=== PATIENT | male | born 2000 | race Caucasian/White ===

== ENCOUNTER 2024-02-12 11:16 | Emergency (ER) | payer SELFPAY ==
[2024-02-12] MEDS ORDERED: LIDOCAINE 2% INJ, 20 mL 20 ML ONE (11:38)
[2024-02-12 13:09] VITALS: BP 139/87; TEMP 98.6; O2SAT 100
--- NOTE | 2024-02-12 15:07 | EDPHYS ---
Physician Documentation [facility] Name: Yusfu Agarwal Age: 23 yrs Sex: Male : 2000 Arrival Date: 02/12/2024 Time: 11:16 Bed 10 Private MD: ED Physician Tatyana Altman HPI: 02/11 12:04 This 23 yrs old Male presents to ER via Ambulatory with complaints of Finger laceration.sp3 12:04 23-year-old male with no past medical history presents with right index finger proximal sp3 segment laceration that occurred approximately 18 hours ago. Patient states that he "try to put some Steri-Strips on it" but finally came in today after he cannot sources on suture material. He denies any ongoing bleeding, distal numbness or tingling, loss of motor function, secondary injury, or any other signs or symptoms on ROS at this time.. Historical: - Allergies: 11:33 Augmentin; ss - Home Meds: 11:33 None [Active]; ss - PMHx: 11:33 None; ss - PSHx: 11:33 None; ss - Immunization history:: Client reports receiving the 2nd dose of the Covid vaccine, Last tetanus immunization: Pt states, 5-7 years ago, more than likely 5 years ago. - Infectious Disease History:: Denies. - Social history:: Smoking status: Patient denies any tobacco usage or history of. ROS: 12:04 Constitutional: Negative for fever, chills, and weight loss, Eyes: Negative for injury, sp3 pain, redness, and discharge, Cardiovascular: Negative for chest pain, palpitations, and edema, Respiratory: Negative for shortness of breath, cough, wheezing, and pleuritic chest pain, Abdomen/GI: Negative for abdominal pain, nausea, vomiting, diarrhea, and constipation, Neuro: Negative for headache, weakness, numbness, tingling, and seizure, 12:04 All other systems are negative, Exam: 12:05 Constitutional: This is a well developed, well nourished patient who is awake, alert, sp3 and in no acute distress. 12:05 Musculoskeletal/extremity: Right index finger proximal segment dorsal laceration approximately 2.5 cm and a short segment and long segment the pattern. Bleeding is stopped and wound is clearly 18 hours or greater in duration since incident. Distal motor function and capillary refill are normal.. Vital Signs: 11:32 BP 139 / 87; Pulse 79; Resp 16; Temp 98.6(O); Pulse Ox 100% on R/A; Weight 83.91 kg; ss Height 6 ft. 2 in. ; Pain 3/10; 11:32 Body Mass Index 23.75 (83.91 kg, 187.96 cm) 11:32 Pain Scale: Adult ss MDM: 11:38 Patient medically screened. sp3 12:06 Data reviewed: vital signs, nurses notes. ED course: The nature hours old eligible for sp3 suture repair. Borders are mostly approximated. We will place in aluminum splint, clean wound and place topical bacitracin and send patient home on p.o. Bactrim given his Augmentin allergy. Wound will close with secondary intention I have educated patient on proper wound care and signs to come into the ED for any future potential injuries. Tetanus is up-to-date.. 02/11 12:03 Order name: Wound Care; Complete Time: 13:54 sp3 02/11 12:03 Order name: Splint - Finger; Complete Time: 13:54 sp3 Administered Medications: 12:45 Drug: Bacitracin Topical Ointment (500 unit/g) 1 application Topical once Route: Topical; Site: wound; Disposition Summary: 02/12/24 12:07 Discharge Ordered Notes: Location: Home sp3 Condition: Stable sp3 Diagnosis - Finger laceration to be closed via secondary intention sp3 Followup: sp3 - With: Private Physician - When: Upon discharge from the Emergency Department - Reason: Continuance of care Discharge Instructions: - Discharge Summary Sheet sp3 - Nonsutured Laceration Care sp3 Forms: - Medication Reconciliation Form sp3 - Antibiotic Education sp3 - Prescription Opioid Use sp3 - Patient Portal Instructions sp3 - Leadership Thank You Letter sp3 Signatures: Krys Murray RN RN Tatyana Altman MD MD sp3
--- NOTE | 2024-02-12 15:07 | ER ---
Nurse's Notes [facility] Name: Yusuf Agarwal Age: 23 yrs Sex: Male : 2000 Arrival Date: 02/12/2024 Time: 11:16 Bed 10 Private MD: Diagnosis: Finger laceration to be closed via secondary intention Presentation: 02/11 11:32 Chief complaint: Patient states: laceration to R index finger that occurred yesterday ss evening with a sledgehammer. Pt states, "nothing is broke or anything like that.". Coronavirus screen: Client denies travel out of the [place] in the last 14 days. Ebola Screen: Patient denies exposure to infectious person. Patient denies travel to an Ebola-affected area in the 21 days before illness onset. Initial Sepsis Screen: Does the patient meet any 2 criteria? No. Patient's initial sepsis screen is negative. Does the patient have a suspected source of infection? No. Patient's initial sepsis screen is negative. Risk Assessment: Do you want to hurt yourself or someone else? Patient reports no desire to harm self or others. Onset of symptoms was February 11, 2024. 11:32 Method Of Arrival: Ambulatory ss 11:32 Acuity: JEROD 4 ss Triage Assessment: 11:33 General: Appears comfortable, Behavior is calm, cooperative. Neuro: Level of ss Consciousness is awake, alert, obeys commands. Derm: Skin is pink, warm \\T\\ dry. black. Injury Description: Laceration sustained to R index finger is 0.5 to 2.5 cm long, was sustained 12-24 hours ago. no active bleeding noted at this time. Historical: - Allergies: 11:33 Augmentin; ss - Home Meds: 11:33 None [Active]; ss - PMHx: 11:33 None; ss - PSHx: 11:33 None; ss - Immunization history:: Client reports receiving the 2nd dose of the Covid vaccine, Last tetanus immunization: Pt states, 5-7 years ago, more than likely 5 years ago. - Infectious Disease History:: Denies. - Social history:: Smoking status: Patient denies any tobacco usage or history of. Screenin:40 [facility] ED Fall Risk Assessment (Adult) History of falling in the last 3 months, ss including since admission No falls in past 3 months (0 pts) Confusion or Disorientation No (0 pts) Intoxicated or Sedated No (0 pts) Impaired Gait No (0 pts) Mobility Assist Device Used No (0 pt) Altered Elimination No (0 pt) Score/Fall Risk Level 0 - 2 = Low Risk Oriented to surroundings, Maintained a safe environment. Abuse screen: Denies threats or abuse. Denies injuries from another. Nutritional screening: No deficits noted. Tuberculosis screening: No symptoms or risk factors identified. Never had TB. Assessment: 11:40 General: Appears in no apparent distress. comfortable, Behavior is calm, cooperative. ss Pain: Complains of pain in R index finger Pain currently is 3 out of 10 on a pain scale. Neuro: Level of Consciousness is awake, alert, obeys commands, Oriented to person, place, time, situation. Respiratory: Airway is patent Respiratory effort is even, unlabored, Respiratory pattern is regular, symmetrical. Derm: Skin is pink, warm \\T\\ dry. normal. Injury Description: Laceration sustained to dorsal aspect of middle phalanx of right index finger is jagged, 0.5 to 2.5 cm long, was sustained 12-24 hours ago. no active bleeding noted at this time. Vital Signs: 11:32 BP 139 / 87; Pulse 79; Resp 16; Temp 98.6(O); Pulse Ox 100% on R/A; Weight 83.91 kg; ss Height 6 ft. 2 in. ; Pain 3/10; 11:32 Body Mass Index 23.75 (83.91 kg, 187.96 cm) ss 11:32 Pain Scale: Adult ss ED Course: 11:19 Patient arrived in ED. mr 11:19 Tatyana Altman MD is Attending Physician. sp3 11:32 Krys Murray, RACHELLE is Primary Nurse. ss 11:33 Triage completed. ss 11:33 Arm band placed on right wrist. ss 11:40 Patient has correct armband on for positive identification. Bed in low position. ss 11:40 No provider procedures requiring assistance completed. Patient did not have IV access ss during this emergency room visit. Wound care: to laceration located on dorsal aspect of middle phalanx of right index finger was cleaned with soap and water, Patient tolerated well. Administered Medications: 12:45 Drug: Bacitracin Topical Ointment (500 unit/g) 1 application Topical once Route: ss Topical; Site: wound; Medication: 11:40 VIS not applicable for this client. Outcome: 12:07 Discharge ordered by . sp3 12:45 Discharged to home ambulatory, with family, ss 12:45 Condition: good 12:45 Discharge instructions given to patient, family, Instructed on discharge instructions, follow up and referral plans. wound care, Demonstrated understanding of instructions, follow-up care, wound care, 12:46 Patient left the ED. Signatures: Vicki Ghotra, Rohan Reg mr Krys Murray, RN RN Tatyana Altman MD MD sp3
== END 2024-02-12 12:46 | disposition home or self-care (01) ==
LOC: ER 11:16
DX: S61.210A Laceration without foreign body of right index finger without damage to nail, initial encounter (principal)